=== PATIENT | male | born 1975 | race Caucasian/White ===

== ENCOUNTER → 2021-10-15 | Outpatient (CLI) | payer OTHER ==
--- NOTE | ~2021-10-15 | SLEEP ---
[address] [address] SLEEP STUDY REPORT Name: KAMERON DIETRICH Room: [facility]#: [id number] Admission: 10/15/21 Attend Phys: Christopher Cardona MD Discharge: Date of : 75 Report #: [id number] THIS REPORT FOR: cc: Jhonatan Hester,Christopher Andrews MD ~ DATE OF STUDY: 10/15/2021 HOME SLEEP STUDY INTERPRETATION: Total duration of the study is 510 minutes. During this time duration, we recorded only rare sleep-related respiratory events. These included 6 obstructive apneas, 1 central apnea and 2 hypopneas. Overall, apnea-hypopnea index is 1.1, which is normal. Body position data indicates the patient is lying supine for 252 minutes and the rest of the time, the patient was on the right side. There is no significant positional variation noted. O2 saturation is adequately maintained for the periods of time that we did obtain a nocturnal pulse oximetry. However, there are prolonged periods of time during the sleep study during which pulse oximetry is not adequately recorded. This may have also led to a significant underestimation of the number of sleep-related respiratory events recorded. IMPRESSION: There is inadequate data available to optimally assess the presence or otherwise of obstructive sleep apnea as well as nocturnal hypoxemia due to prolonged failure of pulse oximetry during this study. RECOMMENDATIONS: Due to limited available data, obstructive sleep apnea and nocturnal hypoxemia cannot be ruled out, although not detected during the portion of the study where we did record data. I therefore recommend that we repeat a home sleep study to assess further. By: [id number] Cardona MD /nt
== END ==
LOC: M.PUL 09-19 11:30
PROVIDERS: ATTEND Internal Medicine Critical Care Medicine
DX: G47.33 Obstructive sleep apnea (adult) (pediatric) (principal)